=== PATIENT | male | born 1945 | race African-American/Black ===

== ENCOUNTER 2017-10-19 21:56 | Inpatient (IN) | payer MEDICARE, MEDICAID ==
--- NOTE | 2017-10-19 23:03 | ED Physician Chart ---
ED Chief Complaint/HPI - Patient Information Date Seen:: 10/19/17 Time Seen:: 22:20 Chief Complaint:: Vomiting History of Present Illness:: 72 yo male with dementia and HCV was taken from [facility] to [facility] for evaluation of increased confusion one day ago. Per patient's sister, the work up was negative except elevated glucose level. The patient was sent back to [facility]. However, patient developed vomiting and decreased oral intake at [facility] today. As a result, patient was brought to [facility] for further evaluation. Patient was alert and awake, refusing blood drawn or IV line placement except EKG and CXR. CXR showed cardiomegaly and possible left lower lobe infiltrate. Allergies:: Allergies Allergy/AdvReac Type Severity Reaction Status Date / Time No Known Allergies Allergy Verified 10/19/17 22:19 Vitals:: Vital Signs - 8 hr 10/19/17 22:00 Temp 98.4 F HR 62 RR 20 BP 155/97 O2 Sat % 100 ED Review of Systems - Review of Systems General/Constitutional: No fever Skin: No rash Head: No headache Neck: No neck pain Cardio Vascular: No chest pain Pulmonary: No SOB GI: Vomiting Musculoskeletal: No bone or joint pain Psychiatric: Other (Dementia) Neurological: Weakness ED Past Medical History - Past Medical History Past Medical History: HTN, DM, PUD/GERD, Dementia, Other (HCV, glaucoma) Social History: Smoker, Alcohol, Illicit Drug Use, Homeless (Due to dementia) Surgical History: other (Coronary stents) Family Medical History - Family Member Mother History Unknown: Yes ED Physical Exam - Physical Examination General/Constitutional: Awake Head: Atraumatic Eyes: PERRL Skin: No ecchymosis ENMT: Nasal exam nl Neck: No nuchal rigidity Respiratory: Clear to Auscultation Cardio Vascular: RRR, No murmur, gallop, rubs, NL S1 S2 GI: No tenderness/rebounding/guarding, Normal BS's, Nondistended Extremities: normal strength in all extremities Neuro/Psych: No focal deficits Other Neuro/Psych comments:: Oriented x 3 ED Assessment - Assessment General Assessment: Due to patient's refusal of diagnostic exam, based on CXR, the working diagnosis were CHF and possible pneumonia. Assessment/Comments:: CXR, EKG Admitted to telemetry for further evaluation and management ED Septic Shock - . Is Septic Shock (SBP<90, OR Lactate>4 mmol\L) present?: No - <6hrs of presentation: Vital Signs: Vital Signs - 8 hr 10/19/ 22:00 Temp 98.4 F HR 62 RR 20 BP 155/97 O2 Sat % 100 ED Reassessment (Disposition) - Reassessment Reassessment Condition:: Unchanged - Patient Disposition Discharge/Transfer:: Acute Care w/in this [facility] Admitting Medical Physician:: Darci Villareal ED Discharge Plan - Patient Disposition Admit/Discharge/Transfer: Acute Care w/in this [facility]
[2017-10-20] MEDS ORDERED: Maalox 30 mL Cup PO PRN (00:18)
[2017-10-20] MEDS ORDERED: Hydrocodone/APAP 5mg/325mg Tab PO PRN (00:19)
[2017-10-20] MEDS ORDERED: Metoclopramide 5 mg/mL 2mL Vial IVP PRN (00:21)
[2017-10-20] MEDS ORDERED: Polyvinyl Alcohol Ophth Soln 15 mL Bottle EACH EYE PRN ×2 (00:43→00:45)
[2017-10-20 03:18] VITALS: BP 177/87
[2017-10-20] MEDS ORDERED: Pneumococcal Vaccine 0.5 mL Vial IM ONE (03:35)
[2017-10-20 08:29] LABS: HEMATOCRIT 36.2 % (41.0-60); HEMOGLOBIN 12.5 gm/dL (12-16); MANUAL DIFF REQUIRED? YES; MEAN CELL VOLUME 93.8 fl (80-99); MEAN CORPUSCULAR HEMOGLOBIN 32.5 pg (27.0-31.0); MEAN CORPUSCULAR HGB CONC 34.6 pg (28.0-36.0); MEAN PLATELET VOLUME 9.2 fl; PLATELET COUNT 101 Th/cmm (150-400); RED BLOOD COUNT 3.86 Mil/cmm (3.80-5.80); RED CELL DISTRIBUTION WIDTH 12.5 % (11.5-20.0)
[2017-10-20 08:32] LABS: WHITE BLOOD COUNT 3.6 Th/cmm (4.8-10.8)
[2017-10-20 08:46] LABS: ALB/GLOB RATIO 0.8 (1.0-1.8); ALBUMIN 3.2 gm/dL (4.2-5.5); ALKALINE PHOSPHATASE 77 U/L (34-104); AMYLASE SERUM 108 U/L (29-103); ANION GAP 10.6 (7.0-16.0); BILIRUBIN,TOTAL 0.8 mg/dL (0.3-1.0); BUN - UREA NITROGEN 12 mg/dL (7-25); CALCIUM SERUM 9.1 mg/dL (8.6-10.3); CARBON DIOXIDE 26.2 mEq/L (21.0-31.0); CHLORIDE 102 mEq/L (98-107); CREATININE - SERUM 0.7 mg/dL (0.7-1.3); GFR AFRICAN-AMERICAN > 60.0 ml/min (>90); GFR NON AFRICAN-AMERICAN > 60.0 ml/min; GLUCOSE 185 mg/dL (70-105); LIPASE 34 U/L (11-82); POTASSIUM SERUM 3.8 mEq/L (3.5-5.1); SGOT 57 U/L (13-39); SGPT/ALT 62 U/L (7-52); SODIUM SERUM 135 mEq/L (136-145)
[2017-10-20 08:54] LABS: BAND NEUTROPHILE 0 % (0-10); NEUTROPHILS 24 % (40-80); TOTAL CELLS COUNTED 100
[2017-10-20 08:55] LABS: BASOPHIL 0 % (0-3); EOSINOPHIL 1 % (0-5); LYMPHOCYTE 63 % (20-50); MONOCYTE 12 % (2-10)
--- NOTE | 2017-10-20 10:35 | Diagnostic Imaging Report ---
Portable chest x-ray HISTORY: Pain The heart appears enlarged. No focal pulmonary processes. No hilar or mediastinal abnormalities. IMPRESSION: 1. No acute focal pulmonary processes 2. Cardiomegaly
[2017-10-20] MEDS ORDERED: VTE Chemical Prophylaxis Screen/Admission MC PRN (11:38)
--- NOTE | 2017-10-21 01:14 | History & Physical ---
ADMIT DATE: 10/19/2017 CHIEF COMPLAINT: Vomiting, confusion, severe weakness, per the patient and his sister. HISTORY OF PRESENT ILLNESS: The patient is a 72-year-old -Scottish male admitted from the Emergency Room to telemetry floor of [facility] due to acute severe vomiting described as projectile by the nursing staff. This kept on in the past 1-2 days with progressive worsening to the point that the patient and his sister really wanted to come to the Emergency Room. In the ER, the patient is noted with leukopenia, white count 3600. Sodium 135. Blood sugar , AST 57, ALT 62. Amylase slightly high at 108. According to the ER physician the chest x-ray revealed findings consistent with pneumonia and also cardiomegaly. PAST MEDICAL HISTORY: Including diabetes, hypertension, Alzheimer disease, constipation, hypertension, gastroesophageal reflux disease, chronic pain syndrome, anxiety, mild psychosis. PAST SURGICAL HISTORY: Denies. MEDICATIONS: See medication reconciliation list. ALLERGIES: No known drug allergy. FAMILY HISTORY: Noncontributory. SOCIAL HISTORY: The patient smoked before, quit years ago. No history of IV drug use. REVIEW OF SYSTEMS: As per HPI. PHYSICAL EXAMINATION: GENERAL: Well-developed female in no acute distress. SKIN: Warm and dry. VITAL SIGNS: Basically stable. HEENT: Normocephalic, atraumatic. Pupils equal, round, react to light and accommodation. CHEST: Symmetrical. LUNGS: Few rhonchi appreciated in the lung base. CARDIAC: Normal sinus rhythm. ABDOMEN: Benign, soft, nontender. EXTREMITIES: No clubbing, cyanosis or edema bilaterally 2+. NEUROLOGIC: Unremarkable. LABORATORY DATA: Reviewed as seen from the computer. Significant for leukopenia, white count 3600. Sodium 135, blood sugar 196, AST 57, ALT 62, amylase 108. ASSESSMENT AND PLAN: 1. Worsening vomiting: Unclear etiology and I did mention to the ER physician that the nurse described the patient's vomiting was projectile in the halfway, but the ER physician said there was absolutely no sign or symptoms of possible meningitis. 2. Congestive heart failure with cardiomegaly: Close monitor and adjust medication as needed. 3. Leukopenia: We will repeat CBC to see if this improves. 4. Altered level of consciousness due to metabolic encephalopathy, dementia. 5. Alzheimer disease: Continue Aricept. 6. Diabetes: Sliding scale insulin low dose. 7. Hypertension. 8. History of hepatitis C. 9. Noncompliance with education provided. 10. Weakness: Fall precautions. 11. DVT prophylaxis. JOB# [id number]
[2017-10-21] MEDS ORDERED: Probiotic Screen MC PRN (09:15)
--- NOTE | 2017-10-21 21:53 | Progress Notes ---
DATE: 10/20/2017 SUBJECTIVE: The patient is confused, lethargic. OBJECTIVE: VITAL SIGNS: Basically stable except bradycardia. HEENT: Normocephalic, atraumatic. Pupils equal, round, react to light and accommodation. CHEST: Symmetrical. LUNGS: Few rhonchi appreciated. CARDIAC: Bradycardia on and off. ABDOMEN: Benign, soft, nontender. EXTREMITIES: No clubbing, cyanosis, edema . NEUROLOGIC: Unremarkable. LABORATORY DATA: Reviewed. ASSESSMENT AND PLAN: 1. Bradycardia: Observe closely and we will check TSH in the morning if the patient . 2. Congestive heart failure: Adjust medication. 3. Early pneumonia: IVPB antibiotics. 4. Out of control diabetes: Sliding scale insulin low dose. Adjust medication as needed. 5. Elevated amylase. We will repeat amylase and lipase level. 6. Mildly elevated liver function tests. [facility]# [id number]
[2017-10-22] MEDS: Lactobacillus Rhamnosus GG 15 Billion CFU CAP.SPRINK PO SCH (08:30)
[2017-10-23] MEDS: Lactobacillus Rhamnosus GG 15 Billion CFU CAP.SPRINK PO SCH (08:11)
[2017-10-23] MEDS: INSULIN ASPART SLIDING SCALE 100 UNITS/ML UNIT SUBQ SCH ×3 (13:19→21:40)
[2017-10-24 06:31] LABS: HEMATOCRIT 35.7 % (41.0-60); HEMOGLOBIN 12.1 gm/dL (12-16); MEAN CELL VOLUME 94.7 fl (80-99); MEAN CORPUSCULAR HGB CONC 33.8 pg (28.0-36.0); MEAN PLATELET VOLUME 9.5 fl; PLATELET COUNT 105 Th/cmm (150-400); RED BLOOD COUNT 3.76 Mil/cmm (3.80-5.80); RED CELL DISTRIBUTION WIDTH 12.5 % (11.5-20.0)
[2017-10-24 06:33] LABS: MANUAL DIFF REQUIRED? YES
[2017-10-24 06:34] LABS: WHITE BLOOD COUNT 3.6 Th/cmm (4.8-10.8)
[2017-10-24 06:39] LABS: ANION GAP 10.7 (7.0-16.0); BUN - UREA NITROGEN 17 mg/dL (7-25); CALCIUM SERUM 9.2 mg/dL (8.6-10.3); CARBON DIOXIDE 27.3 mEq/L (21.0-31.0); CHLORIDE 101 mEq/L (98-107); CREATININE - SERUM 0.8 mg/dL (0.7-1.3); GFR AFRICAN-AMERICAN > 60.0 ml/min (>90); GFR NON AFRICAN-AMERICAN > 60.0 ml/min; GLUCOSE 88 mg/dL (70-105); SODIUM SERUM 135 mEq/L (136-145)
[2017-10-24 07:19] LABS: BAND NEUTROPHILE 2 % (0-10); BASOPHIL 1 % (0-3); EOSINOPHIL 1 % (0-5); LYMPHOCYTE 58 % (20-50); MONOCYTE 13 % (2-10); NEUTROPHILS 25 % (40-80); PLATELET ESTIMATE DECREASED PLATELETS (NORMAL); TOTAL CELLS COUNTED 100
[2017-10-24] MEDS: INSULIN ASPART SLIDING SCALE 100 UNITS/ML UNIT SUBQ SCH ×4 (07:30→21:14)
[2017-10-24] MEDS: Lactobacillus Rhamnosus GG 15 Billion CFU CAP.SPRINK PO SCH (08:09)
[2017-10-25] MEDS: INSULIN ASPART SLIDING SCALE 100 UNITS/ML UNIT SUBQ SCH ×4 (08:41→22:48)
[2017-10-25] MEDS: Lactobacillus Rhamnosus GG 15 Billion CFU CAP.SPRINK PO SCH (10:07)
--- NOTE | 2017-10-25 22:31 | Progress Notes ---
DATE: 10/24/2017 SUBJECTIVE: The patient is lethargic, afebrile. OBJECTIVE: VITAL SIGNS: Basically stable. HEENT: Normocephalic, atraumatic. Pupils equal, round, react to light and accommodation. CHEST: Symmetrical. LUNGS: Few rhonchi appreciated. CARDIAC: Normal sinus rhythm. S1, S2. ABDOMEN: Benign, soft, nontender. EXTREMITIES: No clubbing, cyanosis or edema . NEUROLOGIC: Unremarkable. LABORATORY DATA: Revealed WBC of 3600 unchanged from 2 days ago. Sodium 131, blood sugar 236. ASSESSMENT AND PLAN: 1. Out of control diabetes: Sliding scale insulin low dose. Adjust medication as needed. 2. Altered level of consciousness, improving. 3. Leukopenia, stable. 4. Hyponatremia. 5. Congestive heart failure: Observe closely, adjust medications as needed. 6. Early pneumonia: IVPB antibiotics. 7. DVT prophylaxis. 8. Discharge planning. JOB# [id number]
[2017-10-26] MEDS: INSULIN ASPART SLIDING SCALE 100 UNITS/ML UNIT SUBQ SCH ×2 (06:38→12:11)
--- NOTE | 2017-10-26 08:58 | Diagnostic Imaging Report ---
CHEST X-RAY: AP view INDICATION: Pneumonia COMPARISON: 10/19/2017 FINDINGS: Mild chronic lung changes are noted. There is no focal consolidation or pleural effusions The heart is normal in size. Mildly tortuous aorta is noted. Degenerative changes of the spine are noted. IMPRESSION: Mild chronic lung changes. No focal consolidation identified.
[2017-10-26] MEDS: Lactobacillus Rhamnosus GG 15 Billion CFU CAP.SPRINK PO SCH (09:17)
--- NOTE | 2017-10-26 11:38 | Diagnostic Imaging Report ---
CT abdomen and pelvis without intravenous contrast Indication: Abdominal pain Comparison: None, Technique: Axial images were obtained from the lung bases to the bilateral proximal femurs without IV contrast. Coronal reconstructions were made. total DLP: 400, CTDI7.9 FINDINGS: Hypoventilatory and atelectatic changes of the lung bases are noted. Assessment of solid organs is limited due to lack of IV contrast. Coronary artery atherosclerosis is noted. There is fatty infiltration of the liver. Mildly prominent liver is noted. Exam is also limited due to motion. No focal splenic, pancreatic, or adrenal lesions. Small right renal calculi are seen measuring up to 3 mm. Mildly distal urinary bladder is noted. Diffuse prostate gland calcifications are noted. There is copious amount of stool throughout the colon with distal fecal impaction. No appendicitis. No free air or free fluid. Mild atherosclerosis is noted. Degenerative changes of the spine are noted with old compression deformity of L3. IMPRESSION: Copious stool throughout the colon. Please correlate clinically for constipation. Distended urinary bladder. Nonobstructive punctate right renal calculi. Mild prominent liver. Atherosclerotic vascular disease including coronary artery calcifications.
[2017-10-26 11:41] LABS: ALB/GLOB RATIO 0.8 (1.0-1.8); ALBUMIN 3.3 gm/dL (4.2-5.5); ALKALINE PHOSPHATASE 63 U/L (34-104); ANION GAP 12.6 (7.0-16.0); BILIRUBIN,TOTAL 0.7 mg/dL (0.3-1.0); BUN - UREA NITROGEN 20 mg/dL (7-25); CALCIUM SERUM 9.2 mg/dL (8.6-10.3); CARBON DIOXIDE 25.9 mEq/L (21.0-31.0); CHLORIDE 102 mEq/L (98-107); CHOLESTEROL 169 mg/dL (<200); CREATININE - SERUM 0.8 mg/dL (0.7-1.3); GFR AFRICAN-AMERICAN > 60.0 ml/min (>90); GFR NON AFRICAN-AMERICAN > 60.0 ml/min; GLUCOSE 245 mg/dL (70-105); HDL -HIGH DENSITY LIPOPROTEIN 53 mg/dL (23-92); POTASSIUM SERUM 4.5 mEq/L (3.5-5.1); SGOT 69 U/L (13-39); SGPT/ALT 66 U/L (7-52); SODIUM SERUM 136 mEq/L (136-145); TOTAL PROTEIN,SERUM 7.3 gm/dL (6.0-8.3); TRIGLYCERIDES 105 mg/dL (<150)
[2017-10-26 11:42] LABS: AMYLASE SERUM 126 U/L (29-103); LIPASE 42 U/L (11-82)
--- NOTE | 2017-10-27 06:28 | Discharge Summary ---
DATE OF DISCHARGE: 10/26/2017 FINAL DIAGNOSES: 1. Chest pain, ruled out for acute coronary syndrome. 2. Abdominal pain, improved. 3. Vomiting, resolved. 4. Congestive heart failure with cardiomegaly. 5. Leukopenia, stable. 6. Noncompliance with education provided. 7. Altered level of consciousness improved. 8. Alzheimer disease. HOSPITAL COURSE: The patient is a 72-year-old -Thai male admitted due to vomiting, some chest pain and abdominal pain. The vomiting, resolved upon admission. The patient also had congestive heart failure and a questionable pneumonia on admission. However, the patient refused IV antibiotics and he also refused medications from time to time. Extensive education provided for oxygen noncompliance with limited effect. Just the day prior to the planned discharge, the patient said he had abdominal pain again. I ordered abdominal and pelvic CT scan, which revealed nonobstructive punctate right renal calculi and constipation. The patient was accepted back. [facility]# [id number]
== END 2017-10-26 14:43 | DRG 193 ==
LOC: ER 21:56 → TELE 23:50 → MSI 10-22 10:39 → TELE 10-24 07:48 → MSI 10-24 22:02
PROVIDERS: ADMIT Internal Medicine; ATTEND Internal Medicine
DX: J18.9 Pneumonia, unspecified organism (principal); G93.41 Metabolic encephalopathy; R11.10 Vomiting, unspecified; I50.9 Heart failure, unspecified; G30.9 Alzheimer's disease, unspecified; F02.80 Dementia in other diseases classified elsewhere, unspecified severity, without behavioral disturbance, psychotic disturbance, mood disturbance, and anxiety; I11.0 Hypertensive heart disease with heart failure; E11.9 Type 2 diabetes mellitus without complications; K21.9 Gastro-esophageal reflux disease without esophagitis; H40.9 Unspecified glaucoma; F17.210 Nicotine dependence, cigarettes, uncomplicated; G89.4 Chronic pain syndrome; F41.9 Anxiety disorder, unspecified; R00.1 Bradycardia, unspecified; R07.9 Chest pain, unspecified; N20.0 Calculus of kidney; K59.00 Constipation, unspecified; Z95.5 Presence of coronary angioplasty implant and graft
CPT/HCPCS: 36415-UA; 71045-TC; 80048-TC; 80053-TC; 80061-TC; 82140-TC; 82150-TC; 82948-90; 83036-90; 83690-TC; 83735-TC; 83880-TC; 84443-TC; 84484-TC; 85007-TC; 85025-TC; 85027-TC; 87070; 93005; J1644; J1815; J2543; J7040; Z7610

== ENCOUNTER 2018-03-21 22:50 | Inpatient (IN) | payer MEDICARE, MEDICAID ==
--- NOTE | 2018-03-21 23:10 | ED Physician Chart ---
ED Chief Complaint/HPI - Patient Information Date Seen:: 03/21/18 Time Seen:: 23:07 Chief Complaint:: sister here with brother History of Present Illness:: 73 yr old bm with htn parkinsons dmalzheimers ht failure metabolic encepalopathy Allergies:: Allergies Allergy/AdvReac Type Severity Reaction Status Date / Time No Known Allergies Allergy Verified 03/21/18 22:53 Vitals:: Vital Signs - 8 hr 03/21/18 22:50 Temp 98.1 F HR 99 RR 20 BP 120/68 O2 Sat % 99 ED Review of Systems - Review of Systems General/Constitutional: No fever Skin: Skin lesions (mass lt arm) Head: No headache Eyes: No loss of vision ENT: No earache Neck: No neck pain Cardio Vascular: No chest pain Pulmonary: No SOB GI: No vomiting G/U: No dysuria Psychiatric: Prior psych history (ctxs ) Family Medical History - Family Member Mother History Unknown: Yes ED Septic Shock - . Is Septic Shock (SBP<90, OR Lactate>4 mmol\L) present?: No - <6hrs of presentation: Vital Signs: Vital Signs - 8 hr 03/21/18 22:50 Temp 98.1 F HR 99 RR 20 BP 120/68 O2 Sat % 99 ED Reassessment (Disposition) - Diagnosis Diagnosis:: parkinsons weakness - Patient Disposition Discharge/Transfer:: Acute Care w/in this hosp Condition at Disposition:: Stable
[2018-03-21 23:20] LABS: HEMATOCRIT 38.9 % (41.0-60); HEMOGLOBIN 13.1 gm/dL (12-16); MEAN CELL VOLUME 95.1 fl (80-99); MEAN CORPUSCULAR HEMOGLOBIN 32.1 pg (27.0-31.0); MEAN CORPUSCULAR HGB CONC 33.7 pg (28.0-36.0); MEAN PLATELET VOLUME 10.1 fl; PLATELET COUNT 80 Th/cmm (150-400); RED BLOOD COUNT 4.09 Mil/cmm (3.80-5.80); RED CELL DISTRIBUTION WIDTH 13.1 % (11.5-20.0)
[2018-03-21 23:32] LABS: WHITE BLOOD COUNT 3.7 Th/cmm (4.8-10.8)
[2018-03-21 23:51] LABS: ALB/GLOB RATIO 0.8 (1.0-1.8); ALBUMIN 3.2 gm/dL (4.2-5.5); ALKALINE PHOSPHATASE 76 U/L (34-104); ANION GAP 14.4 (7.0-16.0); BILIRUBIN,TOTAL 0.5 mg/dL (0.3-1.0); BUN - UREA NITROGEN 27 mg/dL (7-25); CALCIUM SERUM 9.5 mg/dL (8.6-10.3); CARBON DIOXIDE 26.8 mEq/L (21.0-31.0); CHLORIDE 102 mEq/L (98-107); CREATININE - SERUM 0.9 mg/dL (0.7-1.3); GLUCOSE 268 mg/dL (70-105); POTASSIUM SERUM 4.2 mEq/L (3.5-5.1); SGOT 124 U/L (13-39); SGPT/ALT 125 U/L (7-52); SODIUM SERUM 139 mEq/L (136-145); TOTAL PROTEIN,SERUM 7.3 gm/dL (6.0-8.3)
[2018-03-22 00:12] LABS: NEUTROPHILS 51 % (40-80)
[2018-03-22 00:13] LABS: BAND NEUTROPHILE 3 % (0-10); EOSINOPHIL 1 % (0-5); LYMPHOCYTE 37 % (20-50); MONOCYTE 8 % (2-10)
[2018-03-22 00:14] LABS: PLATELET ESTIMATE DECREASED PLATELETS (NORMAL); PLATELET MORPHOLOGY NORMAL (NORMAL)
[2018-03-22 05:10] VITALS: BP 133/77
[2018-03-22] MEDS: INSULIN ASPART SLIDING SCALE 100 UNITS/ML UNIT SUBQ SCH ×4 (07:41→21:09)
[2018-03-22] MEDS ORDERED: VTE Chemical Prophylaxis Screen/Admission MC PRN (11:57)
[2018-03-22] MEDS ORDERED: Maalox 30 mL Cup PO PRN (19:24)
[2018-03-22] MEDS ORDERED: MDI INH PRN (20:00)
[2018-03-22] MEDS ORDERED: ALBUTEROL SULFATE INH PRN (20:00)
--- NOTE | 2018-03-22 20:55 | History & Physical ---
ADMIT DATE: 03/22/2018 CHIEF COMPLAINT: Increasing confusion, agitation and tremor by the patient and his sister who insisted on sending the patient to the hospital as she was a little worried. HISTORY OF PRESENT ILLNESS: The patient is a 73-year-old -[place] male admitted from the Emergency Room due to worsening confusion, agitation and especially worsening tremor. The patient's sister visits him in the halfway and was really worried about his increasing tremor in the halfway and insisted on sending the patient to the hospital as she was really, really worried. The patient is somewhat noncompliant and he is definitely more confused than his baseline mental status. He is also more agitated. Psychiatrist consultation requested and request is appreciated. I also requested neurologic consultation due to history of Parkinson's disease. Lab grossman, the patient's white count is 3700 which is low with normal being 4800 to 10,800. The patient's blood sugar here in the Emergency Room was 268. His lactic acid initially 3.43, which is slightly high and decreased to 2.33 in just 2 hours. I have ordered to repeat lactic acid level in the morning. The patient also has history of out of control diabetes, hypertension and congestive heart failure, probably due to coronary heart disease, status post MN. PAST MEDICAL HISTORY: Diabetes, hypertension, coronary heart disease, congestive heart failure as a result, hepatitis C, psychosis, Parkinson's disease, Alzheimer's disease. PAST SURGICAL HISTORY: Denies significant past surgical history. MEDICATIONS: See medication reconciliation list. ALLERGIES: No known drug allergy. FAMILY HISTORY: Noncontributory. SOCIAL HISTORY: The patient smoked before and quit a while ago. Denies alcohol or IV drug use. REVIEW OF SYSTEMS: As per HPI. PHYSICAL EXAMINATION: GENERAL: Well-developed female in no acute distress. SKIN: Warm and dry. VITAL SIGNS: Basically stable except bradycardia. HEENT: Normocephalic, atraumatic. Pupils equal, round, react to light and accommodation. CHEST: Symmetrical. LUNGS: Clear to auscultation bilaterally. CARDIAC: Normal sinus rhythm, occasional bradycardia. S1, S2. ABDOMEN: Benign, soft, nontender. EXTREMITIES: No clubbing, cyanosis, edema, bilaterally 2+. CRANIOLOGICAL: Unremarkable. LABORATORY DATA: Reviewed as seen from the computer and that mentioned above. ASSESSMENT AND PLAN: 1. Increasing tremor to the point that the patient's family really wanted to send the patient to the hospital. Neurology consultation requested and appreciated. 2. Altered level of consciousness due to metabolic encephalopathy and dementia. We will observe closely. 3. Leukopenia: We will repeat CBC in the morning. The patient's lactic acid was slightly high, but trended down. We will repeat lactic acid in the morning. 4. Agitation: The patient may need a sitter. 5. Psychosis, by history: Psychiatric consultation requested and appreciated. 6. History of mild congestive heart failure: I will order BMP to be repeated. 7. Bradycardia occasionally: We will monitor closely, but the patient's TSH was normal, just a few months ago and I will repeat. 8. Diabetes: Sliding scale insulin low dose, but the patient is noncompliant, which is the main culprit of the poorly controlled diabetes. 9. History of hepatitis C. 10. DVT prophylaxis. JOB# [id number]
[2018-03-22] MEDS ORDERED: Non-Formulary Item 1 EA (Melatonin [Melatonin] 3 MG) PO SCH (21:00)
[2018-03-22] MEDS: Atorvastatin Calcium 10 MG TAB PO SCH (21:08)
[2018-03-23] MEDS: INSULIN ASPART SLIDING SCALE 100 UNITS/ML UNIT SUBQ SCH ×4 (07:36→21:00)
[2018-03-23] MEDS ORDERED: EMPAGLIFLOZIN 10 MG PO SCH (09:00)
[2018-03-23] MEDS ORDERED: Non-Formulary Item 1 EA (Amino Acids/Protein Hydrolys [Pro-Stat Sugar Free Liquid] 30 ML) PO SCH (09:00)
[2018-03-23] MEDS: Vitamin B Complex w/Vitamin C Tab PO SCH (09:58)
[2018-03-23] MEDS: Lactobacillus Rhamnosus GG 15 Billion CFU CAP.SPRINK PO SCH (09:58)
[2018-03-23] MEDS: Vitamin D3 2,000 IU SGL PO SCH (09:59)
[2018-03-23] MEDS: Polyvinyl Alcohol Ophth Soln 15 mL Bottle EACH EYE SCH ×2 (10:04→18:53)
[2018-03-23 16:39] LABS: HEMOGLOBIN 12.1 gm/dL (12-16); RED BLOOD COUNT 3.86 Mil/cmm (3.80-5.80)
[2018-03-23 16:40] LABS: HEMATOCRIT 36.6 % (41.0-60); MEAN CELL VOLUME 94.8 fl (80-99); MEAN CORPUSCULAR HEMOGLOBIN 31.4 pg (27.0-31.0); MEAN CORPUSCULAR HGB CONC 33.1 pg (28.0-36.0); MEAN PLATELET VOLUME 10.3 fl; PLATELET COUNT 72 Th/cmm (150-400); RED CELL DISTRIBUTION WIDTH 12.9 % (11.5-20.0)
[2018-03-23 16:43] LABS: WHITE BLOOD COUNT 2.9 Th/cmm (4.8-10.8)
[2018-03-23 16:48] LABS: ALB/GLOB RATIO 0.8 (1.0-1.8); ALBUMIN 2.9 gm/dL (4.2-5.5); ALKALINE PHOSPHATASE 68 U/L (34-104); ANION GAP 11.6 (7.0-16.0); BILIRUBIN,TOTAL 0.5 mg/dL (0.3-1.0); BUN - UREA NITROGEN 23 mg/dL (7-25); CALCIUM SERUM 9.1 mg/dL (8.6-10.3); CARBON DIOXIDE 25.4 mEq/L (21.0-31.0); CHLORIDE 100 mEq/L (98-107); CREATININE - SERUM 0.7 mg/dL (0.7-1.3); GLUCOSE 216 mg/dL (70-105); MAGNESIUM 1.9 mg/dL (1.9-2.7); SGOT 108 U/L (13-39); SGPT/ALT 107 U/L (7-52); SODIUM SERUM 133 mEq/L (136-145); TOTAL PROTEIN,SERUM 6.7 gm/dL (6.0-8.3)
[2018-03-23 17:10] LABS: LYMPHOCYTE 59 % (20-50); MONOCYTE 10 % (2-10); NEUTROPHILS 31 % (40-80)
[2018-03-23 17:11] LABS: PLATELET ESTIMATE DECREASED PLATELETS (NORMAL)
[2018-03-23] MEDS: Atorvastatin Calcium 10 MG TAB PO SCH (21:00)
--- NOTE | 2018-03-23 23:16 | Internal Medicine Prog Note ---
Internal Medicine Subjective - Subjective Service Date: 03/23/18 Patient seen and examined:: with staff Patient is:: asleep, eyes closed Per staff patient has:: no adverse event Internal Medicine Objective - Results Result Diagrams: 03/23/18 16:22 03/23/18 16:22 Recent Labs: Laboratory Last Values WBC 2.9 Th/cmm (4.8-10.8) L 03/23/18 16:22 RBC 3.86 Mil/cmm (3.80-5.80) 03/23/18 16:22 Hgb 12.1 gm/dL (12-16) 03/23/18 16:22 Hct 36.6 % (41.0-60) L 03/23/18 16:22 MCV 94.8 fl (80-99) 03/23/18 16:22 MCH 31.4 pg (27.0-31.0) H 03/23/18 16:22 MCHC Differential 33.1 pg (28.0-36.0) 03/23/18 16:22 RDW 12.9 % (11.5-20.0) 03/23/18 16:22 Plt Count 72 Th/cmm (150-400) L 03/23/18 16:22 MPV 10.3 fl 03/23/18 16:22 Add Manual Diff YES 03/23/18 16:22 Band Neutrophils % 3 % (0-10) 03/21/18 23:10 Neutrophils (Manual) 31 % (40-80) L 03/23/18 16:22 Lymphocytes 59 % (20-50) H 03/23/18 16:22 Monocytes 10 % (2-10) 03/23/18 16:22 Eosinophils 1 % (0-5) 03/21/18 23:10 Platelet Estimate DECREASED PLATELETS (NORMAL) 03/23/18 16:22 Platelet Morphology NORMAL (NORMAL) 03/21/18 23:10 Sodium 133 mEq/L (136-145) L 03/23/18 16:22 Potassium 4.0 mEq/L (3.5-5.1) 03/23/18 16:22 Chloride 100 mEq/L (98-107) 03/23/18 16:22 Carbon Dioxide 25.4 mEq/L (21.0-31.0) 03/23/18 16:22 Anion Gap 11.6 (7.0-16.0) 03/23/18 16:22 BUN 23 mg/dL (7-25) 03/23/18 16:22 Creatinine 0.7 mg/dL (0.7-1.3) 03/23/18 16:22 Est GFR ( Amer) TNP 03/23/18 16:22 Est GFR (Non-Af Amer) TNP 03/23/18 16:22 BUN/Creatinine Ratio 32.9 03/23/18 16:22 Glucose 216 mg/dL (70-105) H 03/23/18 16:22 POC Glucose 244 MG/DL (70 - 105) H 03/23/18 20:29 Whole Bld Lactic Acid 1.77 mmol/L (0.60-1.99) 03/23/18 20:22 Calcium 9.1 mg/dL (8.6-10.3) 03/23/18 16:22 Magnesium 1.9 mg/dL (1.9-2.7) 03/23/18 16:22 Total Bilirubin 0.5 mg/dL (0.3-1.0) 03/23/18 16:22 AST 108 U/L (13-39) H 03/23/18 16:22 ALT 107 U/L (7-52) H 03/23/18 16:22 Alkaline Phosphatase 68 U/L (34-104) 03/23/18 16:22 B-Natriuretic Peptide 108.0 pg/mL (5.0-100.0) H 03/23/18 16:22 Total Protein 6.7 gm/dL (6.0-8.3) 03/23/18 16:22 Albumin 2.9 gm/dL (4.2-5.5) L 03/23/18 16:22 Globulin 3.8 gm/dL 03/23/18 16:22 Albumin/Globulin Ratio 0.8 (1.0-1.8) L 03/23/18 16:22 TSH 0.90 uIU/ml (0.34-5.60) 03/23/18 16:22 - Physical Exam Vitals and I&O: Vital Signs Temp 98.1 F 03/23/18 20:00 Pulse 70 03/23/18 20:00 Resp 17 03/23/18 20:00 BP 117/68 03/23/18 20:00 Pulse Ox 99 03/23/18 20:00 Intake & Output 03/23/18 03/23/18 03/24/18 06:59 18:59 06:59 Intake Total 340 460 Balance 340 460 Weight (lbs) 64.41 kg 64.41 kg Intake: Oral 340 460 Other: # Voids 2 3 # Bowel Movements 0 0 Weight Source Bedscale Bedscale Active Medications: Current Medications Acetaminophen (Tylenol) 650 mg PO Q6HR PRN PRN Reason: Mild Pain 1-3 or Fever >101 Stop: 05/21/18 19:23 Acetaminophen/Hydrocodone Bitart (Chatom 5mg/325mg) 1 tab PO Q4HR PRN PRN Reason: Pain (Severe) 8-10 Stop: 05/21/18 19:23 Al Hydrox/Mg Hydrox/Simethicone (Maalox) 30 ml PO Q6HR PRN PRN Reason: Upset Stomach / Indigestion Stop: 05/21/18 19:23 Albuterol Sulfate (Ventolin Hfa) 2 puff INH Q4H PRN PRN Reason: Shortness of Breath or Wheeze Stop: 05/21/18 19:59 Artificial Tears (Artificial Tears Ophth Soln) 1 drop EACH EYE BID [facility] Stop: 05/22/18 08:59 Last Admin: 03/23/18 18:53 Dose: Not Given Aspirin (Ecotrin) 81 mg PO DAILY [facility] Stop: 05/22/18 08:59 Last Admin: 03/23/18 09:58 Dose: 81 mg Atorvastatin Calcium (Lipitor) 20 mg PO HS [facility] Stop: 05/21/18 20:59 Last Admin: 03/23/18 21:00 Dose: 20 mg Benazepril HCl (Lotensin) 5 mg PO DAILY [facility] Stop: 05/22/18 08:59 Last Admin: 03/23/18 09:57 Dose: 5 mg Benztropine Mesylate (Cogentin) 0.5 mg PO BID [facility] Stop: 05/22/18 08:59 Last Admin: 03/23/18 18:52 Dose: Not Given Docusate Sodium (Colace) 100 mg PO DAILY [facility] Stop: 05/22/18 08:59 Last Admin: 03/23/18 09:58 Dose: 100 mg Famotidine (Pepcid) 20 mg PO BID [facility] Stop: 05/22/18 08:59 Last Admin: 03/23/18 18:52 Dose: Not Given Heparin Sodium (Porcine) (Heparin) 5,000 units SUBQ Q12HR [facility] Stop: 05/21/18 20:59 Last Admin: 03/23/18 20:56 Dose: Not Given Insulin Aspart (Novolog Insulin Sliding Scale) 0 units SUBQ ACHS [facility]; Protocol Stop: 05/21/18 20:59 Last Admin: 03/23/18 21:00 Dose: 6 units Lactobacillus Rhamnosus (Culturelle 15b) 1 each PO DAILY [facility] Stop: 05/22/18 08:59 Last Admin: 03/23/18 09:58 Dose: 1 each Latanoprost (Xalatan 0.005% [facility]) 1 drop EACH EYE [facility] Stop: 05/21/18 20:59 Last Admin: 03/23/18 21:02 Dose: Not Given Metformin HCl (Glucophage) 500 mg PO TIDWM [facility] Stop: 05/22/18 07:59 Last Admin: 03/23/18 18:53 Dose: Not Given Miscellaneous (Vte Chemical Prophylaxis Screen/ Admission) 1 ea [facility] PRN PRN PRN Reason: PROTOCOL Stop: 05/21/18 11:56 Miscellaneous (Empagliflozin [Jardiance]) 10 mg PO DAILY [facility] Stop: 05/22/18 08:59 Miscellaneous (Melatonin [Melatonin]) 3 mg PO [facility] Stop: 05/21/18 20:59 Ondansetron HCl (Zofran Odt) 4 mg PO Q4HR PRN PRN Reason: Nausea / Vomiting Stop: 05/21/18 19:23 Risperidone (Risperdal) 1 mg PO [facility]; Protocol Stop: 05/21/18 20:59 Last Admin: 03/23/18 20:59 Dose: 1 mg Vitamin B Complex/Vit C/Folic Acid (Vitamin B Complex W/Vitamin C) 1 tab PO DAILY [facility] Stop: 05/22/18 08:59 Last Admin: 03/23/18 09:58 Dose: 1 tab Vitamin D (Vitamin D3) 2,000 iu PO DAILY [facility] Stop: 05/22/18 08:59 Last Admin: 03/23/18 09:59 Dose: 2,000 iu General: weak, demented HEENT: NC/AT, PERRLA, EOMI, anicteric sclerae Neck: Supple, No JVD Lungs: CTAB, congested Cardiovascular: RRR, Normal S1, Normal S2 Abdomen: soft, non-tender, non-distended Extremities: clear, edema Neurological: no change Internal Medicine Assmt/Plan - Assessment Assessment: Leukopenia: worsening? repeat CBC in AM; hematology consultation appreciated. ALOC: on and off; observe. Bradycardia: resolved. Elevated lactic acid: resolving. Agitation: improving. h/o Psychosis h/o Parkinson's disease. Nutritional Asmnt/Malnutr-PDOC - Dietary Evaluation Malnutrition Findings (Please click <Entered> for more info): Nutritional Asmnt/Malnutrition Start: 03/22/18 14: 05 Text: Status: Complete Freq: Protocol: Document 03/22/18 14:05 HOWIE (Rec: 03/22/18 14:15 [email or web address]) Nutritional Asmnt/Malnutrition Patient General Information Nutritional Screening High Risk Diagnosis tremors, aloc, leukopenia Pertinent Medical Hx/Surgical Hx No H&P available yet; per nurse note: CARDIAC DISEASE, DIABETES, ALZHIMERS, HEART FAILURE, CARDIAC STENT Subjective Information Pt resting in bed at time of visit. Pt appeared slightly disoriented, but states no preferences with diet/meals. Per nursing staff, pt didn't much or any of breakfast today . [facility]; pt was uninterested and declined handout. Current Diet Order/ Nutrition Support CCHO 45 gm, Low Na, needs help feeding Pertinent Medications novolog Pertinent Labs 03/22: POC 161 03/21: BUN 27, glucose 268, Alb 3.2 Nutritional Hx/Data Height 1.7 m Height (Calculated Centimeters) 170.2 Current Weight (lbs) 64.41 kg Weight (Calculated Kilograms) 64.4 Weight (Calculated Grams) 34574.1 [place] Body Weight 148 lb Body Mass Index (BMI) 22.2 Weight Status Approriate GI Symptoms GI Symptoms None Last BM none noted Difficult in: None Food Allergies No Skin Integrity/Comment: tere payton Estimated Nutritional Goals BEE in Kcals: Using Current wt Calories/Kcals/Kg 25-30 Kcals Calculated 3890-9606 Protein: Using Current wt Protein g/k.0 Protein Calculated 65 g Fluid: ml 1345-6312 (1 ml/kcal) Nutritional Problem 1. Problem Problem Altered nutrition related lab values Etiology hyperglycemia, hx of DM Signs/Symptoms: POC 161, glucose 268 upon admission Malnutrition Alert Is there a minimum of two criteria No selected? Query Text:Check all the applicable criteria. A minimum of two criteria are recommended for diagnosis of either severe or non-severe malnutrition. Malnutrition Related to Morbid Obesity Malnutrition related to morbid obesity No Intervention/Recommendation Comments 1. Continue w/ CCHO 45 gm, low Na diet as ordered and assist w/ feeding as needed 2. Recommend to offer double portion of protein during meals to meet pt's estimated kcal needs 3. Monitor PO intake, wt, labs and skin integrity 4. F/U as moderate risk in 3-5 days, 03/25-03/27; PO check Expected Outcomes/Goals Expected Outcomes/Goals 1. PO intake to meet at least 75% of all meals 2. Wt stability, skin to remain intact, and nutrition related labs to approach normal limits
--- NOTE | 2018-03-24 03:32 | Consultation ---
DATE OF CONSULTATION: 03/23/2018 HISTORY OF PRESENT ILLNESS: A 73-year-old male, currently in the med-surg unit admitted for tremors, altered level of consciousness, leukopenia. On [id number], the patient is AO to name. He knows he is in the hospital. He has no idea why he is in the hospital. He believes the year is 1996. He states the month is January. He believed the season is winter. He has no idea what city he is in. Per nursing staff he is not combative or agitated, but is very confused, trying to leave, wanting to leave, but has no direction to go, too confused to be involved in a plan for discharge at this time. The patient's mood is "okay." Poor historian. PAST PSYCHIATRIC HISTORY: Unclear, but based on his medications it appears he may have history of schizophrenia. FAMILY HISTORY: Unclear. SOCIAL HISTORY: The patient states he was born in [place]. He states he has been for 9 years and his is at home. He states he has two children. Denies any drugs, alcohol or tobacco. MEDICATIONS: Medications were noted including Risperdal, Cogentin. MEDICAL HISTORY: Includes diabetes, hypertension, possibly dementia. MENTAL STATUS EXAMINATION: Stated age. Fair eye contact. Speech, decreased content. Orientation as noted. Mood "okay." Affect flat. Thought processes were disoriented, disengaged. No SI, no HI. Denying any overt auditory or visual hallucinations. Insight and judgment seemingly diminished. PROVISIONAL DIAGNOSIS: Concerns for schizophrenia, rule out dementia versus delirium. MEDICAL: Please see full H and P. RECOMMENDATIONS AND PLAN: Continue 1:1 sitter, high risk for AWOL. Continue Cogentin. Add trazodone for sleep. The patient may need Geropsych placement. JOB# [id number]
[2018-03-24 06:04] LABS: HEMATOCRIT 36.2 % (41.0-60); HEMOGLOBIN 12.1 gm/dL (12-16); MEAN CELL VOLUME 95.7 fl (80-99); MEAN CORPUSCULAR HEMOGLOBIN 32.1 pg (27.0-31.0); MEAN CORPUSCULAR HGB CONC 33.6 pg (28.0-36.0); RED BLOOD COUNT 3.78 Mil/cmm (3.80-5.80); RED CELL DISTRIBUTION WIDTH 13.3 % (11.5-20.0)
[2018-03-24 06:17] LABS: ALB/GLOB RATIO 0.8 (1.0-1.8); ALBUMIN 2.8 gm/dL (4.2-5.5); ALKALINE PHOSPHATASE 63 U/L (34-104); ANION GAP 11.9 (7.0-16.0); BILIRUBIN,TOTAL 0.7 mg/dL (0.3-1.0); BUN - UREA NITROGEN 24 mg/dL (7-25); CALCIUM SERUM 9.2 mg/dL (8.6-10.3); CARBON DIOXIDE 26.2 mEq/L (21.0-31.0); CHLORIDE 104 mEq/L (98-107); CREATININE - SERUM 0.7 mg/dL (0.7-1.3); POTASSIUM SERUM 4.1 mEq/L (3.5-5.1); SGOT 126 U/L (13-39); SGPT/ALT 110 U/L (7-52); SODIUM SERUM 138 mEq/L (136-145); TOTAL PROTEIN,SERUM 6.5 gm/dL (6.0-8.3)
[2018-03-24 06:19] LABS: GLUCOSE 126 mg/dL (70-105)
[2018-03-24 06:33] LABS: INR 1.01 (0.5-1.4); PROTHROMBIN TIME (TEST) 10.5 SECONDS (9.5-11.5)
[2018-03-24] MEDS: INSULIN ASPART SLIDING SCALE 100 UNITS/ML UNIT SUBQ SCH ×4 (06:34→22:01)
[2018-03-24 06:45] LABS: PLATELET COUNT 68 Th/cmm (150-400); WHITE BLOOD COUNT 2.9 Th/cmm (4.8-10.8)
[2018-03-24 06:58] LABS: LYMPHOCYTE 48 % (20-50); MONOCYTE 10 % (2-10); NEUTROPHILS 42 % (40-80); PLATELET ESTIMATE DECREASED PLATELETS (NORMAL)
--- NOTE | 2018-03-24 08:21 | Diagnostic Imaging Report ---
Portable chest x-ray History: Cough Allowing for portable technique the heart size is normal. No focal pulmonary parenchymal processes. No hilar or mediastinal abnormalities. Impression: No acute abnormalities.
--- NOTE | 2018-03-24 09:17 | Internal Medicine Prog Note ---
Internal Medicine Subjective - Subjective Service Date: 03/24/18 Patient seen and examined:: without staff Patient is:: asleep, eyes closed Per staff patient has:: no adverse event Internal Medicine Objective - Results Result Diagrams: 03/24/18 05:49 03/24/18 05:49 Recent Labs: Laboratory Last Values WBC 2.9 Th/cmm (4.8-10.8) L 03/24/18 05:49 RBC 3.78 Mil/cmm (3.80-5.80) L 03/24/18 05:49 Hgb 12.1 gm/dL (12-16) 03/24/18 05:49 Hct 36.2 % (41.0-60) L 03/24/18 05:49 MCV 95.7 fl (80-99) 03/24/18 05:49 MCH 32.1 pg (27.0-31.0) H 03/24/18 05:49 MCHC Differential 33.6 pg (28.0-36.0) 03/24/18 05:49 RDW 13.3 % (11.5-20.0) 03/24/18 05:49 Plt Count 68 Th/cmm (150-400) L 03/24/18 05:49 MPV 10.0 fl 03/24/18 05:49 Add Manual Diff YES 03/24/18 05:49 Band Neutrophils % 3 % (0-10) 03/21/18 23:10 Neutrophils (Manual) 42 % (40-80) 03/24/18 05:49 Lymphocytes 48 % (20-50) 03/24/18 05:49 Monocytes 10 % (2-10) 03/24/18 05:49 Eosinophils 1 % (0-5) 03/21/18 23:10 Platelet Estimate DECREASED PLATELETS (NORMAL) 03/24/18 05:49 Platelet Morphology NORMAL (NORMAL) 03/21/18 23:10 Plt Count 68 Th/cmm (150-750) L 03/24/18 05:49 PT 10.5 SECONDS (9.5-11.5) 03/24/18 05:49 INR 1.01 (0.5-1.4) 03/24/18 05:49 PTT (Actin FS) 25.0 SECONDS (26.0-38.0) L 03/24/18 05:49 Fibrinogen 247.0 mg/dL (200.0-400.0) 03/24/18 05:49 D-Dimer 128 ng/mL (100-400) 03/24/18 05:49 Sodium 138 mEq/L (136-145) 03/24/18 05:49 Potassium 4.1 mEq/L (3.5-5.1) 03/24/18 05:49 Chloride 104 mEq/L (98-107) 03/24/18 05:49 Carbon Dioxide 26.2 mEq/L (21.0-31.0) 03/24/18 05:49 Anion Gap 11.9 (7.0-16.0) 03/24/18 05:49 BUN 24 mg/dL (7-25) 03/24/18 05:49 Creatinine 0.7 mg/dL (0.7-1.3) 03/24/18 05:49 Est GFR ( Amer) TNP 03/24/18 05:49 Est GFR (Non-Af Amer) TNP 03/24/18 05:49 BUN/Creatinine Ratio 34.3 03/24/18 05:49 Glucose 126 mg/dL (70-105) H D 03/24/18 05:49 POC Glucose 139 MG/DL (70 - 105) H 03/24/18 06:02 Whole Bld Lactic Acid 1.77 mmol/L (0.60-1.99) 03/23/18 20:22 Calcium 9.2 mg/dL (8.6-10.3) 03/24/18 05:49 Magnesium 1.9 mg/dL (1.9-2.7) 03/23/18 16:22 Total Bilirubin 0.7 mg/dL (0.3-1.0) 03/24/18 05:49 AST 126 U/L (13-39) H 03/24/18 05:49 ALT 110 U/L (7-52) H 03/24/18 05:49 Alkaline Phosphatase 63 U/L (34-104) 03/24/18 05:49 Lactate Dehydrogenase 125 U/L (140-271) L 03/24/18 05:49 B-Natriuretic Peptide 108.0 pg/mL (5.0-100.0) H 03/23/18 16:22 Total Protein 6.5 gm/dL (6.0-8.3) 03/24/18 05:49 Albumin 2.8 gm/dL (4.2-5.5) L 03/24/18 05:49 Globulin 3.7 gm/dL 03/24/18 05:49 Albumin/Globulin Ratio 0.8 (1.0-1.8) L 03/24/18 05:49 TSH 0.90 uIU/ml (0.34-5.60) 03/23/18 16:22 - Physical Exam Vitals and I&O: Vital Signs Temp 97.6 F 03/24/18 00:00 Pulse 65 03/24/18 00:00 Resp 18 03/24/18 00:00 BP 126/73 03/24/18 00:00 Pulse Ox 98 03/24/18 00:00 Intake & Output 03/23/18 03/24/18 03/24/18 18:59 06:59 18:59 Intake Total 560 Balance 560 Weight (lbs) 64.41 kg Intake: Oral 560 Other: # Voids 1 # Bowel Movements 0 Weight Source Bedscale Active Medications: Current Medications Acetaminophen (Tylenol) 650 mg PO Q6HR PRN PRN Reason: Mild Pain 1-3 or Fever >101 Stop: 05/21/18 19:23 Acetaminophen/Hydrocodone Bitart ([place] 5mg/325mg) 1 tab PO Q4HR PRN PRN Reason: Pain (Severe) 8-10 Stop: 05/21/18 19:23 Al Hydrox/Mg Hydrox/Simethicone (Maalox) 30 ml PO Q6HR PRN PRN Reason: Upset Stomach / Indigestion Stop: 05/21/18 19:23 Albuterol Sulfate (Ventolin Hfa) 2 puff INH Q4H PRN PRN Reason: Shortness of Breath or Wheeze Stop: 05/21/18 19:59 Artificial Tears (Artificial Tears Ophth Soln) 1 drop EACH EYE BID [facility] Stop: 05/22/18 08:59 Last Admin: 03/23/18 18:53 Dose: Not Given Aspirin (Ecotrin) 81 mg PO DAILY [facility] Stop: 05/22/18 08:59 Last Admin: 03/23/18 09:58 Dose: 81 mg Atorvastatin Calcium (Lipitor) 20 mg PO HS [facility] Stop: 05/21/18 20:59 Last Admin: 03/23/18 21:00 Dose: 20 mg Benazepril HCl (Lotensin) 5 mg PO DAILY [facility] Stop: 05/22/18 08:59 Last Admin: 03/23/18 09:57 Dose: 5 mg Benztropine Mesylate (Cogentin) 0.5 mg PO BID [facility] Stop: 05/22/18 08:59 Last Admin: 03/23/18 18:52 Dose: Not Given Docusate Sodium (Colace) 100 mg PO DAILY [facility] Stop: 05/22/18 08:59 Last Admin: 03/23/18 09:58 Dose: 100 mg Famotidine (Pepcid) 20 mg PO BID [facility] Stop: 05/22/18 08:59 Last Admin: 03/23/18 18:52 Dose: Not Given Heparin Sodium (Porcine) (Heparin) 5,000 units SUBQ Q12HR [facility] Stop: 05/21/18 20:59 Last Admin: 03/23/18 20:56 Dose: Not Given Insulin Aspart (Novolog Insulin Sliding Scale) 0 units SUBQ ACHS [facility]; Protocol Stop: 05/21/18 20:59 Last Admin: 03/24/18 06:34 Dose: Not Given Lactobacillus Rhamnosus (Culturelle 15b) 1 each PO DAILY [facility] Stop: 05/22/18 08:59 Last Admin: 03/23/18 09:58 Dose: 1 each Latanoprost (Xalatan 0.005% Oph Soln) 1 drop EACH EYE [facility] Stop: 05/21/18 20:59 Last Admin: 03/23/18 21:02 Dose: Not Given Metformin HCl (Glucophage) 500 mg PO TIDWM [facility] Stop: 05/22/18 07:59 Last Admin: 03/23/18 18:53 Dose: Not Given Miscellaneous (Vte Chemical Prophylaxis Screen/ Admission) 1 ea MC PRN PRN PRN Reason: PROTOCOL Stop: 05/21/18 11:56 Miscellaneous (Empagliflozin [Jardiance]) 10 mg PO DAILY [facility] Stop: 05/22/18 08:59 Ondansetron HCl (Zofran Odt) 4 mg PO Q4HR PRN PRN Reason: Nausea / Vomiting Stop: 05/21/18 19:23 Risperidone (Risperdal) 1 mg PO HS [facility]; Protocol Stop: 05/21/18 20:59 Last Admin: 03/23/18 20:59 Dose: 1 mg Vitamin B Complex/Vit C/Folic Acid (Vitamin B Complex W/Vitamin C) 1 tab PO DAILY [facility] Stop: 05/22/18 08:59 Last Admin: 03/23/18 09:58 Dose: 1 tab Vitamin D (Vitamin D3) 2,000 iu PO DAILY [facility] Stop: 05/22/18 08:59 Last Admin: 03/23/18 09:59 Dose: 2,000 iu General: weak, demented HEENT: NC/AT, PERRLA, EOMI, anicteric sclerae Neck: Supple, No JVD Lungs: CTAB, congested Cardiovascular: RRR, Normal S1, Normal S2 Abdomen: soft, non-tender, non-distended Extremities: clear, edema Neurological: no change Internal Medicine Assmt/Plan - Assessment Assessment: Noncompliance: education provided. Leukopenia: no change from yesterday; hematology consultation appreciated. ALOC: on and off; observe. Bradycardia: resolved. Elevated lactic acid: resolving. Agitation: improving. h/o Psychosis h/o Parkinson's disease. Nutritional Asmnt/Malnutr-PDOC - Dietary Evaluation Malnutrition Findings (Please click <Entered> for more info): Nutritional Asmnt/Malnutrition Start: 03/22/18 14: 05 Text: Status: Complete Freq: Protocol: Document 03/22/18 14:05 HOWIE (Rec: 03/22/18 14:15 [email or web address]) Nutritional Asmnt/Malnutrition Patient General Information Nutritional Screening High Risk Diagnosis tremors, aloc, leukopenia Pertinent Medical Hx/Surgical Hx No H&P available yet; per nurse note: CARDIAC DISEASE, DIABETES, ALZHIMERS, HEART FAILURE, CARDIAC STENT Subjective Information Pt resting in bed at time of visit. Pt appeared slightly disoriented, but states no preferences with diet/meals. Per nursing staff, pt didn't much or any of breakfast today . Attempted to provide education on CCHO diet for diabetes; pt was uninterested and declined handout. Current Diet Order/ Nutrition Support CCHO 45 gm, Low Na, needs help feeding Pertinent Medications novolog Pertinent Labs 03/22: POC 161 03/21: BUN 27, glucose 268, Alb 3.2 Nutritional Hx/Data Height 1.7 m Height (Calculated Centimeters) 170.2 Current Weight (lbs) 64.41 kg Weight (Calculated Kilograms) 64.4 Weight (Calculated Grams) 38167.1 [place] Body Weight 148 lb Body Mass Index (BMI) 22.2 Weight Status Approriate GI Symptoms GI Symptoms None Last BM none noted Difficult in: None Food Allergies No Skin Integrity/Comment: tere payton 13 Estimated Nutritional Goals BEE in Kcals: Using Current wt Calories/Kcals/Kg 25-30 Kcals Calculated 0996-2874 Protein: Using Current wt Protein g/k.0 Protein Calculated 65 g Fluid: ml 4092-0696 (1 ml/kcal) Nutritional Problem 1. Problem Problem Altered nutrition related lab values Etiology hyperglycemia, hx of DM Signs/Symptoms: POC 161, glucose 268 upon admission Malnutrition Alert Is there a minimum of two criteria No selected? Query Text:Check all the applicable criteria. A minimum of two criteria are recommended for diagnosis of either severe or non-severe malnutrition. Malnutrition Related to Morbid Obesity Malnutrition related to morbid obesity No Intervention/Recommendation Comments 1. Continue w/ CCHO 45 gm, low Na diet as ordered and assist w/ feeding as needed 2. Recommend to offer double portion of protein during meals to meet pt's estimated kcal needs 3. Monitor PO intake, wt, labs and skin integrity 4. F/U as moderate risk in 3-5 days, 03/25-03/27; PO check Expected Outcomes/Goals Expected Outcomes/Goals 1. PO intake to meet at least 75% of all meals 2. Wt stability, skin to remain intact, and nutrition related labs to approach normal limits
[2018-03-24] MEDS: Lactobacillus Rhamnosus GG 15 Billion CFU CAP.SPRINK PO SCH (09:25)
[2018-03-24] MEDS: Vitamin D3 2,000 IU SGL PO SCH (09:25)
[2018-03-24] MEDS: Polyvinyl Alcohol Ophth Soln 15 mL Bottle EACH EYE SCH ×2 (09:25→16:18)
[2018-03-24] MEDS: Vitamin B Complex w/Vitamin C Tab PO SCH (09:25)
[2018-03-24 12:15] LABS: FOLIC ACID >20.0 ng/mL (>3.0)
--- NOTE | 2018-03-24 12:16 | Diagnostic Imaging Report ---
Exam: Ultrasound examination of the abdomen. HISTORY: Splenomegaly. Prior exams: None Findings: Real-time ultrasound examination abdomen performed multiple planes the study demonstrates normal echogenicity liver parenchyma. The gallbladder free of calculi the common bile duct measures 8 mm in diameter which is not unusual for the patient's age. The pancreas poorly seen. There is no evidence of obstructive uropathy or nephrolithiasis. The spleen is enlarged measuring 12 cm in span. No free fluid is noted. IMPRESSION: Essentially unremarkable exam of the abdomen, splenomegaly, spleen measures 12 cm in span.
[2018-03-24] MEDS: Atorvastatin Calcium 10 MG TAB PO SCH (22:00)
[2018-03-25] MEDS: INSULIN ASPART SLIDING SCALE 100 UNITS/ML UNIT SUBQ SCH ×4 (06:34→20:43)
[2018-03-25 06:53] LABS: HEMOGLOBIN 12.9 gm/dL (12-16)
[2018-03-25 07:02] LABS: ALB/GLOB RATIO 0.8 (1.0-1.8); ALKALINE PHOSPHATASE 79 U/L (34-104); ANION GAP 10.3 (7.0-16.0); BILIRUBIN,TOTAL 0.7 mg/dL (0.3-1.0); BUN - UREA NITROGEN 19 mg/dL (7-25); CALCIUM SERUM 9.2 mg/dL (8.6-10.3); CARBON DIOXIDE 26.6 mEq/L (21.0-31.0); CHLORIDE 103 mEq/L (98-107); CREATININE - SERUM 0.6 mg/dL (0.7-1.3); GLUCOSE 132 mg/dL (70-105); POTASSIUM SERUM 3.9 mEq/L (3.5-5.1); SGOT 159 U/L (13-39); SGPT/ALT 138 U/L (7-52); SODIUM SERUM 136 mEq/L (136-145); TOTAL PROTEIN,SERUM 6.9 gm/dL (6.0-8.3)
[2018-03-25 07:08] LABS: HEMATOCRIT 38.5 % (41.0-60); MEAN CORPUSCULAR HEMOGLOBIN 31.8 pg (27.0-31.0); MEAN CORPUSCULAR HGB CONC 33.4 pg (28.0-36.0); MEAN PLATELET VOLUME 10.9 fl; PLATELET COUNT 79 Th/cmm (150-400); RED BLOOD COUNT 4.05 Mil/cmm (3.80-5.80); RED CELL DISTRIBUTION WIDTH 13.2 % (11.5-20.0); WHITE BLOOD COUNT 2.6 Th/cmm (4.8-10.8)
[2018-03-25 07:32] LABS: BAND NEUTROPHILE 0 % (0-10); BASOPHIL 0 % (0-3); EOSINOPHIL 1 % (0-5); LYMPHOCYTE 58 % (20-50); MONOCYTE 16 % (2-10); NEUTROPHILS 25 % (40-80); PLATELET ESTIMATE DECREASED PLATELETS (NORMAL)
--- NOTE | 2018-03-25 08:05 | Progress Notes ---
DATE: 03/24/2018 SUBJECTIVE: A 73-year-old male, currently in the med-surg unit, admitted for tremors, altered, leukopenia. On [id number]-ibap, the patient is AO to name only. He has no idea why he is in the hospital. He has no idea of the year, stating it is 1992. The patient is refusing medications stating that he "does not think I need them," disoriented, staring blankly, answering some questions, highly impoverished, very poor historian. ASSESSMENT: The patient is refusing medications, disoriented, apparent history of dementia, possibly schizophrenia based on his medication regimen. PLAN: We will continue to monitor the patient without any overt behavioral disturbances. He is on a one-to-one because of some wandering behaviors, but is not aggressive. We will continue to monitor. The patient may need Geropsych placement given his wandering behaviors, there is some family involved. JOB# [id number]
[2018-03-25] MEDS: Lactobacillus Rhamnosus GG 15 Billion CFU CAP.SPRINK PO SCH (08:55)
[2018-03-25] MEDS: Vitamin D3 2,000 IU SGL PO SCH (08:55)
[2018-03-25] MEDS: Vitamin B Complex w/Vitamin C Tab PO SCH (08:56)
[2018-03-25] MEDS: Polyvinyl Alcohol Ophth Soln 15 mL Bottle EACH EYE SCH ×2 (08:58→18:09)
--- NOTE | 2018-03-25 09:32 | Internal Medicine Prog Note ---
Internal Medicine Subjective - Subjective Service Date: 03/25/18 Patient seen and examined:: without staff Patient is:: asleep, eyes closed Per staff patient has:: no adverse event Internal Medicine Objective - Results Result Diagrams: 03/25/18 06:00 03/25/18 06:00 Recent Labs: Laboratory Last Values WBC 2.6 Th/cmm (4.8-10.8) L 03/25/18 06:00 RBC 4.05 Mil/cmm (3.80-5.80) 03/25/18 06:00 Hgb 12.9 gm/dL (12-16) 03/25/18 06:00 Hct 38.5 % (41.0-60) L 03/25/18 06:00 MCV 95.0 fl (80-99) 03/25/18 06:00 MCH 31.8 pg (27.0-31.0) H 03/25/18 06:00 MCHC Differential 33.4 pg (28.0-36.0) 03/25/18 06:00 RDW 13.2 % (11.5-20.0) 03/25/18 06:00 Plt Count 79 Th/cmm (150-400) L 03/25/18 06:00 MPV 10.9 fl 03/25/18 06:00 Add Manual Diff YES 03/25/18 06:00 Band Neutrophils % 0 % (0-10) 03/25/18 06:00 Neutrophils (Manual) 25 % (40-80) L 03/25/18 06:00 Lymphocytes 58 % (20-50) H 03/25/18 06:00 Monocytes 16 % (2-10) H 03/25/18 06:00 Eosinophils 1 % (0-5) 03/25/18 06:00 Basophils 0 % (0-3) 03/25/18 06:00 Platelet Estimate DECREASED PLATELETS (NORMAL) 03/25/18 06:00 Platelet Morphology NORMAL (NORMAL) 03/21/18 23:10 Plt Count 68 Th/cmm (150-750) L 03/24/18 05:49 PT 10.5 SECONDS (9.5-11.5) 03/24/18 05:49 INR 1.01 (0.5-1.4) 03/24/18 05:49 PTT (Actin FS) 25.0 SECONDS (26.0-38.0) L 03/24/18 05:49 Fibrinogen 247.0 mg/dL (200.0-400.0) 03/24/18 05:49 D-Dimer 128 ng/mL (100-400) 03/24/18 05:49 Sodium 136 mEq/L (136-145) 03/25/18 06:00 Potassium 3.9 mEq/L (3.5-5.1) 03/25/18 06:00 Chloride 103 mEq/L (98-107) 03/25/18 06:00 Carbon Dioxide 26.6 mEq/L (21.0-31.0) 03/25/18 06:00 Anion Gap 10.3 (7.0-16.0) 03/25/18 06:00 BUN 19 mg/dL (7-25) 03/25/18 06:00 Creatinine 0.6 mg/dL (0.7-1.3) L 03/25/18 06:00 Est GFR ( Amer) TNP 03/25/18 06:00 Est GFR (Non-Af Amer) TNP 03/25/18 06:00 BUN/Creatinine Ratio 31.7 03/25/18 06:00 Glucose 132 mg/dL (70-105) H 03/25/18 06:00 POC Glucose 132 MG/DL (70 - 105) H 03/25/18 06:05 Whole Bld Lactic Acid 1.77 mmol/L (0.60-1.99) 03/23/18 20:22 Calcium 9.2 mg/dL (8.6-10.3) 03/25/18 06:00 Magnesium 1.9 mg/dL (1.9-2.7) 03/23/18 16:22 Total Bilirubin 0.7 mg/dL (0.3-1.0) 03/25/18 06:00 AST 159 U/L (13-39) H 03/25/18 06:00 ALT 138 U/L (7-52) H 03/25/18 06:00 Alkaline Phosphatase 79 U/L (34-104) 03/25/18 06:00 Ammonia 54 umol/L (16-53) H 03/25/18 06:00 Lactate Dehydrogenase 125 U/L (140-271) L 11/08/18 05:49 B-Natriuretic Peptide 108.0 pg/mL (5.0-100.0) H 03/23/18 16:22 Total Protein 6.9 gm/dL (6.0-8.3) 03/25/18 06:00 Albumin 3.0 gm/dL (4.2-5.5) L 03/25/18 06:00 Globulin 3.9 gm/dL 03/25/18 06:00 Albumin/Globulin Ratio 0.8 (1.0-1.8) L 03/25/18 06:00 Vitamin B12 803 pg/mL (232-1245) 03/23/18 16:22 Folic Acid >20.0 ng/mL (>3.0) 03/23/18 16:22 TSH 0.90 uIU/ml (0.34-5.60) 03/23/18 16:22 HIV 1&2 Antibody Screen NEGATIVE (NEG) 03/25/18 06:00 - Physical Exam Vitals and I&O: Vital Signs Temp 97.9 F 03/25/18 03:00 Pulse 62 03/25/18 08:54 Resp 18 03/25/18 03:00 BP 133/67 03/25/18 08:54 Pulse Ox 100 03/25/18 03:00 Intake & Output 03/24/18 03/25/18 03/25/18 18:59 06:59 18:59 Intake Total 600 100 Balance 600 100 Weight (lbs) 64.41 kg 64.41 kg Intake: Oral 600 100 Other: # Voids 3 2 # Bowel Movements 0 Weight Source Bedscale Bedscale Active Medications: Current Medications Acetaminophen (Tylenol) 650 mg PO Q6HR PRN PRN Reason: Mild Pain 1-3 or Fever >101 Stop: 05/21/18 19:23 Acetaminophen/Hydrocodone Bitart ([place] 5mg/325mg) 1 tab PO Q4HR PRN PRN Reason: Pain (Severe) 8-10 Stop: 05/21/18 19:23 Al Hydrox/Mg Hydrox/Simethicone (Maalox) 30 ml PO Q6HR PRN PRN Reason: Upset Stomach / Indigestion Stop: 05/21/18 19:23 Artificial Tears (Artificial Tears Ophth Soln) 1 drop EACH EYE BID [facility] Stop: 05/22/18 08:59 Last Admin: 03/25/18 08:58 Dose: 1 drop Aspirin (Ecotrin) 81 mg PO DAILY [facility] Stop: 05/22/18 08:59 Last Admin: 03/25/18 08:56 Dose: 81 mg Atorvastatin Calcium (Lipitor) 20 mg PO HS [facility] Stop: 05/21/18 20:59 Last Admin: 03/24/18 22:00 Dose: 20 mg Benazepril HCl (Lotensin) 5 mg PO DAILY [facility] Stop: 05/22/18 08:59 Last Admin: 03/25/18 08:54 Dose: 5 mg Benztropine Mesylate (Cogentin) 0.5 mg PO BID [facility] Stop: 05/22/18 08:59 Last Admin: 03/25/18 08:56 Dose: 0.5 mg Docusate Sodium (Colace) 100 mg PO DAILY [facility] Stop: 05/22/18 08:59 Last Admin: 03/25/18 08:56 Dose: 100 mg Famotidine (Pepcid) 20 mg PO BID [facility] Stop: 05/22/18 08:59 Last Admin: 03/25/18 08:56 Dose: 20 mg Heparin Sodium (Porcine) (Heparin) 5,000 units SUBQ Q12HR [facility] Stop: 05/21/18 20:59 Last Admin: 03/25/18 08:58 Dose: Not Given Insulin Aspart (Novolog Insulin Sliding Scale) 0 units SUBQ ACHS [facility]; Protocol Stop: 05/21/18 20:59 Last Admin: 03/25/18 06:34 Dose: Not Given Lactobacillus Rhamnosus (Culturelle 15b) 1 each PO DAILY [facility] Stop: 05/22/18 08:59 Last Admin: 03/25/18 08:55 Dose: 1 each Latanoprost (Xalatan 0.005% Oph Soln) 1 drop EACH EYE HS [facility] Stop: 05/21/18 20:59 Last Admin: 03/24/18 21:52 Dose: Not Given Metformin HCl (Glucophage) 500 mg PO TIDWM [facility] Stop: 05/22/18 07:59 Last Admin: 03/25/18 08:56 Dose: 500 mg Miscellaneous (Vte Chemical Prophylaxis Screen/ Admission) 1 ea MC PRN PRN PRN Reason: PROTOCOL Stop: 05/21/18 11:56 Miscellaneous (Empagliflozin [Jardiance]) 10 mg PO DAILY [facility] Stop: 05/22/18 08:59 Ondansetron HCl (Zofran Odt) 4 mg PO Q4HR PRN PRN Reason: Nausea / Vomiting Stop: 05/21/18 19:23 Risperidone (Risperdal) 1 mg PO HS [facility]; Protocol Stop: 05/21/18 20:59 Last Admin: 03/24/18 22:00 Dose: 1 mg Trazodone HCl (Desyrel) 50 mg PO HS [facility]; Protocol PRN Reason: Insomnia Stop: 05/24/18 08:06 Vitamin B Complex/Vit C/Folic Acid (Vitamin B Complex W/Vitamin C) 1 tab PO DAILY [facility] Stop: 05/22/18 08:59 Last Admin: 03/25/18 08:56 Dose: 1 tab Vitamin D (Vitamin D3) 2,000 iu PO DAILY [facility] Stop: 05/22/18 08:59 Last Admin: 03/25/18 08:55 Dose: 2,000 iu General: weak, demented HEENT: NC/AT, PERRLA, EOMI, anicteric sclerae Neck: Supple, No JVD Lungs: CTAB, congested Cardiovascular: RRR, Normal S1, Normal S2 Abdomen: soft, non-tender, non-distended Extremities: clear, edema Neurological: no change Internal Medicine Assmt/Plan - Assessment Assessment: Leukopenia: worsening from yesterday; hematology consultation appreciated; work up in progress. Noncompliance: education provided. ALOC: on and off; but better; observe. Bradycardia: resolved. Elevated lactic acid: resolving. Agitation: improving. h/o Psychosis h/o Parkinson's disease. Nutritional Asmnt/Malnutr-PDOC - Dietary Evaluation Malnutrition Findings (Please click <Entered> for more info): Nutritional Asmnt/Malnutrition Start: 03/22/18 14: 05 Text: Status: Complete Freq: Protocol: Document 03/22/18 14:05 HOWIE (Rec: 03/22/18 14:15 [email or web address]) Nutritional Asmnt/Malnutrition Patient General Information Nutritional Screening High Risk Diagnosis tremors, aloc, leukopenia Pertinent Medical Hx/Surgical Hx No H&P available yet; per nurse note: CARDIAC DISEASE, DIABETES, ALZHIMERS, HEART FAILURE, CARDIAC STENT Subjective Information Pt resting in bed at time of visit. Pt appeared slightly disoriented, but states no preferences with diet/meals. Per nursing staff, pt didn't eat much or any of breakfast today. [facility]; pt was uninterested and declined handout. Current Diet Order/ Nutrition Support CCHO 45 gm, Low Na, needs help feeding Pertinent Medications novolog Pertinent Labs 03/22: POC 161 03/21: BUN 27, glucose 268, Alb 3.2 Nutritional Hx/Data Height 1.7 m Height (Calculated Centimeters) 170.2 Current Weight (lbs) 64.41 kg Weight (Calculated Kilograms) 64.4 Weight (Calculated Grams) 63913.1 [place] Body Weight 148 lb Body Mass Index (BMI) 22.2 Weight Status Approriate GI Symptoms GI Symptoms None Last BM none noted Difficult in: None Food Allergies No Skin Integrity/Comment: tere payton 13 Estimated Nutritional Goals BEE in Kcals: Using Current wt Calories/Kcals/Kg 25-30 Kcals Calculated 8323-3698 Protein: Using Current wt Protein g/k.0 Protein Calculated 65 g Fluid: ml 4446-4036 (1 ml/kcal) Nutritional Problem 1. Problem Problem Altered nutrition related lab values Etiology hyperglycemia, hx of DM Signs/Symptoms: POC 161, glucose 268 upon admission Malnutrition Alert Is there a minimum of two criteria No selected? Query Text:Check all the applicable criteria. A minimum of two criteria are recommended for diagnosis of either severe or non-severe malnutrition. Malnutrition Related to Morbid Obesity Malnutrition related to morbid obesity No Intervention/Recommendation Comments 1. Continue w/ CCHO 45 gm, low Na diet as ordered and assist w/ feeding as needed 2. Recommend to offer double portion of protein during meals to meet pt's estimated kcal needs 3. Monitor PO intake, wt, labs and skin integrity 4. F/U as moderate risk in 3-5 days, 03/25-03/27; PO check Expected Outcomes/Goals Expected Outcomes/Goals 1. PO intake to meet at least 75% of all meals 2. Wt stability, skin to remain intact, and nutrition related labs to approach normal limits Reviewed by Lou Abdullahi RD
[2018-03-25 14:17] LABS: HEP A AB IGM Negative (Negative); HEP B CORE IGM Negative (Negative); HEP B SURFACE AG QL Negative (Negative); HEP C ANTIBODY >11.0 s/co ratio (0.0-0.9)
[2018-03-25] MEDS: Atorvastatin Calcium 10 MG TAB PO SCH ×2 (20:17→20:46)
[2018-03-25] MEDS: Hydrocodone/APAP 5mg/325mg Tab PO PRN ×2 (20:17→21:09)
--- NOTE | 2018-03-26 02:51 | Progress Notes ---
DATE: 03/25/2018 SUBJECTIVE : The patient remains confused, disoriented, AO to name only. He also knows he is in the hospital actually. He is not quite sure about the year, the month, or the day of the week, believing it is June 1996. The patient has been calm, mostly cooperative, sometimes impulsive, unpredictable, tries to get up. He is on a one-to-one requiring at times closer supervision. Currently on Risperdal, seems demented, confused. He has slept fairly well last night with geological technician awakenings and has been redirectable. He was n.p.o., got an ultrasound. ASSESSMENT: The patient is calm, cooperative, confused, disoriented. No SI, no HI. No overt psychosis. DIAGNOSIS: Remains dementia, possibly schizophrenia. We will continue to monitor. The patient remains somewhat impulsive. The patient continuing to require close supervision. PLAN: We will continue to monitor, encourage better med compliance. JOB# [id number]
[2018-03-26] MEDS: INSULIN ASPART SLIDING SCALE 100 UNITS/ML UNIT SUBQ SCH ×3 (07:55→16:35)
[2018-03-26 09:41] LABS: HEMATOCRIT 43.5 % (41.0-60); HEMOGLOBIN 14.2 gm/dL (12-16); LYMPHOCYTE ABSOLUTE 1.8 Th/cmm (1.5-3.0); MEAN CELL VOLUME 95.6 fl (80-99); MEAN CORPUSCULAR HEMOGLOBIN 31.2 pg (27.0-31.0); MEAN CORPUSCULAR HGB CONC 32.7 pg (28.0-36.0); MEAN PLATELET VOLUME 10.2 fl; MONOCYTE ABSOLUTE 0.7 Th/cmm (0.3-1.0); NEUTROPHILE ABSOLUTE 1.4 Th/cmm (1.8-8.0); PLATELET COUNT 82 Th/cmm (150-400); RED BLOOD COUNT 4.55 Mil/cmm (3.80-5.80); RED CELL DISTRIBUTION WIDTH 13.3 % (11.5-20.0)
[2018-03-26] MEDS: Lactobacillus Rhamnosus GG 15 Billion CFU CAP.SPRINK PO SCH (09:46)
[2018-03-26] MEDS: Polyvinyl Alcohol Ophth Soln 15 mL Bottle EACH EYE SCH ×2 (09:48→16:35)
[2018-03-26] MEDS: Vitamin D3 2,000 IU SGL PO SCH (09:48)
[2018-03-26] MEDS: Vitamin B Complex w/Vitamin C Tab PO SCH (09:48)
[2018-03-26 09:51] LABS: WHITE BLOOD COUNT 3.9 Th/cmm (4.8-10.8)
[2018-03-26 10:04] LABS: LYMPHOCYTE 54 % (20-50); MONOCYTE 14 % (2-10); NEUTROPHILS 32 % (40-80)
[2018-03-26 10:05] LABS: PLATELET ESTIMATE DECREASED PLATELETS (NORMAL)
[2018-03-26 17:07] LABS: FERRITIN 408 ng/mL (30-400); IRON LC 143 ug/dL (38-169); TIBC (LC) 264 ug/dL (250-450); UIBC 121 ug/dL (111-343)
--- NOTE | 2018-03-31 17:01 | Discharge Summary ---
DATE OF DISCHARGE: 03/26/2018 FINAL DIAGNOSES: 1. Altered level of conscious, improved. 2. Agitation, improved. 3. Tremor, stabilized. 4. Psychosis, significantly improved. 5. Leukopenia, received Hematology consultation. 6. Bradycardia, resolved. 7. History of hepatitis C. HOSPITAL COURSE: The patient is a 73-year-old male admitted due to the above-mentioned diagnoses. He was closely monitored and psychiatric consultation requested. The patient's leukopenia worsened and therefore Hematology consultation with Dr. Ross was requested and greatly appreciated. The patient's white count actually went down further, but patient refused further lab draw on the next day. With the permission of mail messenger contractor, ___ and the patient was discharged to senior living. DISCHARGE CONDITION: Stable. DISPOSITION: [facility]. DISCHARGE MEDICATION: Continue medication from here. DIET: Cardiac soft diet. ACTIVITY: Bed rest with physical therapy. FOLLOWUP: One week. JOB# [id number]
== END 2018-03-26 16:00 | DRG 71 ==
LOC: ER 22:50 → TELE 03-22 04:14 → MSI 03-22 11:59
PROVIDERS: ADMIT Internal Medicine; ATTEND Internal Medicine
DX: G93.41 Metabolic encephalopathy (principal); E44.1 Mild protein-calorie malnutrition; D72.819 Decreased white blood cell count, unspecified; F29 Unspecified psychosis not due to a substance or known physiological condition; I50.9 Heart failure, unspecified; R00.1 Bradycardia, unspecified; I11.0 Hypertensive heart disease with heart failure; G20 Parkinson's disease; G30.9 Alzheimer's disease, unspecified; I25.2 Old myocardial infarction; I25.10 Atherosclerotic heart disease of native coronary artery without angina pectoris; B19.20 Unspecified viral hepatitis C without hepatic coma; F02.80 Dementia in other diseases classified elsewhere, unspecified severity, without behavioral disturbance, psychotic disturbance, mood disturbance, and anxiety; F20.9 Schizophrenia, unspecified; Z91.14 Patient's other noncompliance with medication regimen; Z86.19 Personal history of other infectious and parasitic diseases
CPT/HCPCS: 36415-UA; 71045-TC; 76700-TC; 80053-TC; 80074-90; 82140-TC; 82607-90; 82728-90; 82746-90; 82948-90; 83036-90; 83540-90; 83550-90; 83605; 83615-TC; 83735-TC; 83880-TC; 84443-TC; 85007-TC; 85025-TC; 85049-TC; 85379-TC; 85384-TC; 85610-TC; 85730-TC; 86703-TC; 87522-90; 87536-90; J1644; J1815; Z7610